=== PATIENT | male | born 1960 | race Caucasian/White ===

== ENCOUNTER 2019-09-01 22:43 | Emergency (ER) | payer BC ==
[~2019-09-01] VITALS: Ht 185.4 cm; Wt 122.7 kg
[2019-09-01 22:55] VITALS: Ht 185.4 cm; Wt 122.7 kg
[2019-09-01] MEDS ORDERED: LISINOPRIL2.5 MG PO (22:58)
[2019-09-01 23:12] LABS: BASOPHILS 0.2 % (0-2); EOSINOPHILS 2.6 % (0-7); HEMOGLOBIN 17.7 g/dL (13.5-17.5); LYMPHOCYTES 36.2 % (15-50); MCH 31.5 pg (26.0-34.0); MCV 92.5 fL (80.0-100.0); MEAN PLATELET VOLUME 11.2 fL (7.4-10.4); MONOCYTES 8.9 % (2-11); NEUTROPHILS 51.1 % (40-80); PLATELET COUNT 184 10x3/uL (130-400); RBC 5.62 10x6/uL (4.20-6.10); RDW 14.5 % (11.5-14.5); WBC 9.3 10x3/uL (4.8-10.8)
[2019-09-01 23:23] LABS: APTT 29.2 SECONDS (22.8-39.4); INR 0.84 (0.85-1.17); PROTIME 11.5 SECONDS (11.6-15.0)
[2019-09-01 23:57] LABS: CALC OSMOLALITY 272 mosm/kg (275-300); CALCIUM 9.4 mg/dL (8.5-10.1); CARBON DIOXIDE 28.3 mmol/L (21.0-32.0); CHLORIDE - SERUM 96 mmol/L (98-107); CREATININE - SERUM 1.1 mg/dL (0.6-1.3); GLUCOSE 157 mg/dL (74-106); POTASSIUM - SERUM 4.4 mmol/L (3.5-5.1); SODIUM 134 mmol/L (136-145); UREA NITROGEN 19 mg/dL (7-18); eGFR NON AFRICAN AMERICAN 73 mL/min (90-120)
[2019-09-02 00:14] LABS: ALKALINE PHOSPHATASE 86 U/L (30-120); ALT (SGPT) 102 U/L (10-68); BILIRUBIN - TOTAL 0.51 mg/dL (0.2-1.3); CKMB 5.7 U/L (0.0-3.6); CREATINE KINASE 204 UL (21-232); PROTEIN - SERUM 7.5 g/dL (6.4-8.2)
[2019-09-02 00:15] LABS: PRO BNP 7 pg/mL (0-125); TROPONIN-I < 0.017 ng/mL (0.000-0.060)
[2019-09-02 03:20] LABS: CKMB 5.2 U/L (0.0-3.6); CREATINE KINASE 219 UL (21-232); TROPONIN-I < 0.017 ng/mL (0.000-0.060)
[2019-09-02] MEDS ORDERED: TESSALON PERLE100 MG PO (03:46)
[2019-09-02] MEDS ORDERED: AUGMENTIN 875-11 TAB PO (03:46)
[2019-09-02 03:52] VITALS: BP 148/80
== END 2019-09-02 03:53 | disposition home or self-care (01) ==
LOC: D.ER 22:43
PROVIDERS: Family Medicine
DX: J40 Bronchitis, not specified as acute or chronic (principal); I10 Essential (primary) hypertension; R07.89 Other chest pain

== ENCOUNTER 2020-09-20 07:57 | Emergency (ER) | payer BC ==
[~2020-09-20] VITALS: Ht 185.4 cm; Wt 147.7 kg
[~2020-09-20 07:57] MED LIST: AUGMENTIN 875-11 TAB PO; LISINOPRIL2.5 MG PO; TESSALON PERLE100 MG PO
[2020-09-20 08:04] VITALS: BP 140/100; Ht 185.4 cm; Wt 147.7 kg
[2020-09-20 08:37] LABS: BILIRUBIN NEGATIVE (NEGATIVE); KETONE NEGATIVE (NEGATIVE); NITRITE NEGATIVE (NEGATIVE); UROBILINOGEN NORMAL mg/dL (< 2)
[2020-09-20 08:39] LABS: BASOPHILS 0.6 % (0-2); EOSINOPHILS 2.8 % (0-7); HEMATOCRIT 51.5 % (42.0-54.0); HEMOGLOBIN 17.5 g/dL (13.5-17.5); MCH 30.6 pg (26.0-34.0); MCV 89.9 fL (80.0-100.0); MEAN PLATELET VOLUME 8.8 fL (7.4-10.4); MONOCYTES 10.8 % (2-11); NEUTROPHILS 55.8 % (40-80); PLATELET COUNT 228 10x3/uL (130-400); RBC 5.73 10x6/uL (4.20-6.10); RDW 14.8 % (11.5-14.5); WBC 9.2 10x3/uL (4.8-10.8)
[2020-09-20 08:51] LABS: CALC OSMOLALITY 284 mosm/kg (275-300); CALCIUM 9.5 mg/dL (8.5-10.1); CARBON DIOXIDE 31.8 mmol/L (21.0-32.0); CHLORIDE - SERUM 98 mmol/L (98-107); POTASSIUM - SERUM 4.5 mmol/L (3.5-5.1); SODIUM 135 mmol/L (136-145); UREA NITROGEN 14 mg/dL (7-18); eGFR NON AFRICAN AMERICAN 82 mL/min (90-120)
[2020-09-20 08:54] LABS: GLUCOSE 342 mg/dL (74-106)
[2020-09-20 08:58] LABS: ALKALINE PHOSPHATASE 118 U/L (30-120); ALT (SGPT) 125 U/L (10-68); BILIRUBIN - TOTAL 0.72 mg/dL (0.2-1.3); PROTEIN - SERUM 7.7 g/dL (6.4-8.2)
[2020-09-20] MEDS ORDERED: GLUCOPHAGE500 MG PO (09:05)
== END 2020-09-20 09:32 | disposition home or self-care (01) ==
LOC: D.ER 07:57
PROVIDERS: Student in an Organized Health Care Education/Training Program
DX: R73.9 Hyperglycemia, unspecified (principal); I10 Essential (primary) hypertension